=== PATIENT | male | born 1975 | race Caucasian/White ===

== ENCOUNTER 2020-05-22 00:59 | Emergency (ER) | payer SELFPAY ==
[~2020-05-22] VITALS: Ht 182.9 cm; Wt 99.0 kg
[~2020-05-22 00:59] MED LIST: AMOX500C PO
[2020-05-22 01:57] LABS: BILIRUBIN,URINE SMALL (NEG); CLARITY,URINE TURBID; COLOR,URINE AMBER; NITRITE,URINE NEGATIVE (NEG); PH,URINE 5.5 (<5.0-8.0); PROTEIN,URINE 30 mg/dL (NEG-TRACE)
[2020-05-22 02:03] LABS: BACTERIA,URINE MANY /HPF (0-FEW); RBC,URINE OCC /HPF (0-2); WBC,URINE TNTC /HPF (0-4)
[2020-05-22] MEDS ORDERED: CEPH500T PO (02:23)
[2020-05-22] MEDS ORDERED: DOXY100C2 PO (02:23)
--- NOTE | 2020-05-22 02:24 | ED.ADGEN ---
Past Medical History Past Medical History: No Pertinent History Past Surgical History: Other Additional Past Surgical Histo: VASECTOMY Smoking Status: Current Every Day Smoker Alcohol Use: Rarely Drug Use: None General Adult EDM: Chief Complaint: PAIN ON URINATION HPI: HPI: Patient is a 44-year-old male who presents to the emergency room complaining of dysuria and penile discharge. He states this started 2 days ago. He has never had anything like this before. He did recently have unprotected anal sex with his girlfriend. He states that he is concerned that he may have some kind of infection. He denies any swelling or lesions of the penis. He denies any bladder pain. He has not had any nausea, vomiting, fever, chills, sweats. Review of Systems: Review of Systems: Complete ROS is negative unless otherwise documented in HPI Current Medications: Current Medications Medications (Trade) Dose Ordered Sig/Marcie Start Time Stop Time Status Last Admin Dose Admin Ceftriaxone Sodium (Rocephin Im) 500 mg 1X ONCE 05/22/20 03:00 05/22/20 02:40 DC 05/22/20 02:34 500 MG Allergies: Allergies: Allergies Coded Allergies Type Severity Reaction Last Updated Verified No Known Drug Allergies 10/17/15 No Physical Exam: PE: General: Awake, alert, NAD. Well Nourished, well hydrated. Cooperative HEENT: Atraumatic, EOMI, PERRL, airway patent, moist oral mucosa Neck: Supple, trachea midline Respiratory: CTA bilaterally, normal effort, no wheezing/crackles CV: RRR, no murmur, cap refill <2 GI: Soft, nondistended, nontender, no masses MSK: No obvious deformities Skin: Warm, dry, intact Neuro: A&O x3, speech NL, sensory and motor grossly intact, no focal deficits Psych: Normal affect, normal mood, not suicidal or homicidal Current Patient Data: Labs: Laboratory Tests Test 05/22/20 01:46 Urine Collection Type Unknown Urine Color Barbara Urine Clarity Turbid Urine pH 5.5 (<5.0-8.0) Urine Specific Holden >=1.030 (1.000-1.030) Urine Protein 30 mg/dL (NEG-TRACE) Urine Glucose (UA) Negative mg/dL (NEG) Urine Ketones (Stick) Negative mg/dL (NEG) Urine Blood Large (NEG) Urine Nitrite Negative (NEG) Urine Bilirubin Small (NEG) Urine Urobilinogen Dipstick 1.0 mg/dL (0.2 mg/dL) Urine Leukocyte Esterase Large (NEG) Urine RBC Occ /HPF (0-2) Urine WBC Tntc /HPF (0-4) Urine Squamous Epithelial Cells Occ /LPF Urine Bacteria Many /HPF (0-FEW) Urine Mucus Mod /LPF Vital Signs: Vital Signs Date Time Temp Pulse Resp B/P (MAP) Pulse Ox O2 Delivery O2 Flow Rate FiO2 05/22/20 02:27 93 96 05/22/20 01:34 98.6 16 164/107 (126) Room Air 98.6 EKG: EKG: [] Heart Score: C/O Chest Pain: N/A Risk Factors: Risk Factors: DM, Current or recent (<one month) smoker, HTN, HLP, family history of CAD, obesity. Risk Scores: Score 0 - 3: 2.5% MACE over next 6 weeks - Discharge Home Score 4 - 6: 20.3% MACE over next 6 weeks - Admit for Clinical Observation Score 7 - 10: 72.7% MACE over next 6 weeks - Early Invasive Strategies Radiology/Procedures: Radiology/Procedures: [] Course & Med Decision Making: Course & Med Decision Making Pertinent Labs and Imaging studies reviewed. (See chart for details) Patient is a 44 year-old male who presents to the Emergency Room complaining of penile discharge and dysuria. Patient's presentation is concerning for urethritis due to possible sexually transmitted disease versus UTI. Patient does not have any lesions or swelling at this time. UA and gonorrhea chlamydia urine PCR will be ordered. Patient will be treated empirically with Rocephin and doxycycline. UA does show many white blood cells. We will place the patient on Keflex in case this is not a sexually transmitted disease. I have discussed with the patient that they will need to follow up with the health department for full testing, that their partners should be tested and treated, and that they should not have sexual intercourse for at least 7 days after treatment. Patient's test results and vitals while in the ED were fully reviewed and discussed with the patient. Patient is stable and at this time does not need admission to the hospital. We have discussed strict return precautions and the importance of following up with their Primary Care Physician. Patient stated understanding and was given an opportunity to ask any questions. Patient is in agreement with plan. Kell Disclaimer: [place] Disclaimer: This electronic medical record was generated, in whole or in part, using a voice recognition dictation system. Departure Departure Impression: Primary Impression: Urethritis Disposition: 01 DC HOME SELF CARE/HOMELESS Condition: STABLE Referrals: NO PCP (PCP) Patient Instructions: Urethritis, Adult Scripts Doxycycline Hyclate (DOXYCYCLINE HYCLATE) 100 Mg Capsule 1 CAP PO BID, #14 CAP Prov: FABIOLA MCKEE MD 05/22/20 Cephalexin (CEPHALEXIN) 500 Mg Tablet 1 TAB PO BID, #20 TAB Prov: FABIOLA MCKEE MD 05/22/20 FABIOLA MCKEE MD May 22, 2020 02:24
[2020-05-22 02:27] VITALS: BP 176/103
[2020-05-22] MEDS ORDERED: cefTRIAXone IM 500 MG VIAL. IM ONE (03:00)
== END 2020-05-22 02:27 | disposition home or self-care (01) ==
LOC: ER 00:59
DX: N34.2 Other urethritis (principal); F17.200 Nicotine dependence, unspecified, uncomplicated
CPT/HCPCS: 81001; 96372; 99283; J0696; 96361; 96374; 96375

== ENCOUNTER 2020-07-13 23:00 | Emergency (ER) | payer SELFPAY ==
[~2020-07-13] VITALS: Ht 182.9 cm; Wt 98.6 kg
[2020-07-13 23:00] VITALS: BP 169/110
[~2020-07-13 23:00] MED LIST changes: +CEPH500T PO; +DOXY100C2 PO
[2020-07-14] MEDS ORDERED: CLIN150C15 PO (00:07)
[2020-07-14] MEDS ORDERED: NAPR-514 PO (00:07)
--- NOTE | 2020-07-14 00:08 | ED.ADGEN ---
Past Medical History Past Medical History: Hypertension Past Surgical History: Other Additional Past Surgical Histo: VASECTOMY Smoking Status: Current Every Day Smoker (1 pack/day) Alcohol Use: Rarely Drug Use: Amphetamine (IV use daily) General Adult EDM: Chief Complaint: INSECT BITE HPI: HPI: Patient is a 44 year old male who presents to the emergency department with complaints of a tender, red, swollen area to his pubis for the last 2 days. Patient reports concerns of a spider bite. Patient states he has been doing some yard work at a friend's house and he may have been bitten by some type of insect or spider when he was doing that. He denies any fever, body aches, fatigue, nausea, vomiting, diarrhea, chest pain, shortness of breath, or sore throat. Patient denies any itching. He rates pain a 6 out of 10 on the pain scale the only thing that is helped the pain feel better is taking a hot shower. Reports that the pain increases with touch. He denies any drainage or bleeding from the site. Review of Systems: Review of Systems: Complete ROS is negative unless otherwise noted in HPI. Allergies: Allergies: Allergies Coded Allergies Type Severity Reaction Last Updated Verified No Known Drug Allergies 10/17/15 No Physical Exam: PE: See Above Constitutional: Well developed, well nourished, no acute distress, non-toxic appearance. [] HENT: Normocephalic, atraumatic, bilateral external ears normal, nose normal. [] Eyes: PERRLA, EOMI, conjunctiva normal, no discharge. [] Neck: Normal range of motion, no stridor. [] Cardiovascular:Heart rate regular rhythm Lungs & Thorax: Respirations even and unlabored, no retractions, no respiratory distress Skin: Warm, dry, 6 cm x 4 cm area of indurated, erythemic, warm, and swollen tissue with a centralized punctum to the patient's left pubic region, nonfluctuant, no purulent drainage. Extremities: No cyanosis, ROM intact, no edema. [] Neurologic: Alert and oriented X 3, normal motor, normal sensory, no focal deficits noted. [] Psychologic: Affect normal, judgement normal, mood normal. [] Current Patient Data: Vital Signs: Vital Signs Date Time Temp Pulse Resp B/P (MAP) Pulse Ox O2 Delivery O2 Flow Rate FiO2 07/13/20 23:00 97.8 83 18 169/110 (129) 96 Room Air 97.8 EKG: EKG: [] Heart Score: C/O Chest Pain: No Risk Scores: Score 0 - 3: 2.5% MACE over next 6 weeks - Discharge Home Score 4 - 6: 20.3% MACE over next 6 weeks - Admit for Clinical Observation Score 7 - 10: 72.7% MACE over next 6 weeks - Early Invasive Strategies Radiology/Procedures: Radiology/Procedures: [] Course & Med Decision Making: Course & Med Decision Making Pertinent Labs and Imaging studies reviewed. (See chart for details) []The patient was seen and interviewed as well as examined at the bedside. The chart was reviewed. The case was discussed. Agree with the plan of care. Stephanon Disclaimer: Kell Disclaimer: This electronic medical record was generated, in whole or in part, using a voice recognition dictation system. Departure Departure Impression: Primary Impression: Insect bite of pelvic region with infection Disposition: HOME / SELF CARE / HOMELESS Condition: STABLE Referrals: NO PCP (PCP) Patient Instructions: Abscess, [id number], Insect Bite, [id number] Additional Instructions: Fill the prescription(s) and use as directed. You may take tylenol or ibuprofen as needed for pain. Apply warm, moist packs to the area to help decrease discomfort. Follow up with your primary care doctor or return to the ER in 48 hours to have wound rechecked. Return to the ER sooner if your symptoms worsen or fever develops. [facility] [address] [place] [address] [facility] [address] [place] [address] [facility] [address] [place] [address] [facility] [address] [place] [address] [facility] [address] [place] [address] [address] [place] [address] [address] [place] [address] [facility] [address] [place] [address] [facility] [address] [place] [address] [facility] [address] [place] [address] Scripts Naproxen (NAPROXEN) 500 Mg Tablet 1 TAB PO BID PRN for PAIN for 10 Days, #20 TAB 0 Refills Prov: ADAM STERLING APRN 07/14/20 Clindamycin Hcl (CLINDAMYCIN HCL) 150 Mg Capsule 300 MG PO QID for 10 Days, #80 CAP 0 Refills Prov: ADAM STERLING APRN 07/14/20 Problem Qualifiers Primary Impression: Insect bite of pelvic region with infection Encounter type: initial encounter Qualified Codes: S30.860A - Insect bite (nonvenomous) of lower back and pelvis, initial encounter; L08.9 - Local infection of the skin and subcutaneous tissue, unspecified; W57.XXXA - Bitten or stung by nonvenomous insect and other nonvenomous arthropods, initial encounter ADAM STERLING APRN July 14, 2020 00:08 NOELLE CLAUDIO DO July 16, 2020 18:59
== END 2020-07-14 00:30 | disposition home or self-care (01) ==
LOC: ER 23:00
DX: S30.860A Insect bite (nonvenomous) of lower back and pelvis, initial encounter (principal); B99.8 Other infectious disease; I10 Essential (primary) hypertension; F17.210 Nicotine dependence, cigarettes, uncomplicated; F15.10 Other stimulant abuse, uncomplicated; W57.XXXA Bitten or stung by nonvenomous insect and other nonvenomous arthropods, initial encounter; Y93.89 Activity, other specified; Y92.89 Other specified places as the place of occurrence of the external cause; Y99.8 Other external cause status
CPT/HCPCS: 99283